=== PATIENT | female | born 1995 | race Caucasian/White ===

== ENCOUNTER 2017-10-02 15:56 | Emergency (ER) | END 2017-10-02 19:01 | disposition home or self-care (01) ==

== ENCOUNTER 2019-01-08 11:42 | Outpatient (CLI) | payer BC ==
[~2019-01-08] VITALS: Ht 157.5 cm; Wt 53.1 kg
[~2019-01-08 11:42] MED LIST: AMOX500C2 PO; HYDR-4011 PO; NAPR-688 PO; NITR-58 PO
[2019-01-08 11:53] VITALS: Ht 157.5 cm; Wt 53.1 kg
--- NOTE | 2019-01-08 15:16 | PN ---
Triage Information Date/Time January 08, 2019 Reason for visit: Diarrhea Weeks of Gestation 25w /Para 1/0 Diabetes: none Hypertention: none Additional information Pt had a few bouts of diarrhea 2 days ago and once yesterday and none today. She is eating and no nausea or vomiting. No fever or chills. Pt came in as she was feeling weak although has been keeping a light diet to help her belly. No RAMIREZ's. PMHx: none. PSHx: none. NKDA. Objective T=98.0 BP 130/76 Heart Rate: 130's Heart Rate Comments Accels to 150 BPM. No decels. Contractions: None Results/Medications Imaging Results BPP 03/23 with a normal SYLVIE. Disposition: Discharge Assessment/Plan A: IUP at 25 weeks. Resolving GI distress/possible viral syndrome. P: D/C home with instructions to rest a lot, stay hydrated. F/u with her doctor as scheduled. BOGDAN ARNOLD MD January 08, 2019 15:16
--- NOTE | 2019-01-08 15:18 | TRIAGE ---
OB Triage Datetime Report Generated by CPN: 01/08/2019 15:17 Datetime: 01/08/2019 15:06 Stage of : OB Triage Maternal Assessment Level of Consciousness: Fully Conscious DTR's/Clonus: DTRs 1+ Headache: Denies Breath Sounds, Left: Clear and Equal Breath Sounds, Right: Clear and Equal Nausea/Vomiting: Denies RUQ Epigastric Pain: Denies Labor Evaluation Frequency: NONE Monitor Mode: External Resting Tone [place]: Relaxed Heart Rate FHR Baseline Rate: 140 Monitor Mode: External US Variability: Moderate 6-25 bpm Accelerations: 10X10 Decelerations: Variable Category: Category I Pain Assessment Pain Scale: 0 Pain Presence: None/Denies Pain Type: N/A Pain Goal: 3 Vaginal Exam Membrane Status: Intact Datetime: 01/08/2019 14:55 Stage of : OB Triage Maternal Assessment Level of Consciousness: Fully Conscious DTR's/Clonus: DTRs 1+ Headache: Denies Breath Sounds, Left: Clear and Equal Breath Sounds, Right: Clear and Equal Nausea/Vomiting: Denies RUQ Epigastric Pain: Denies Labor Evaluation Frequency: NONE Monitor Mode: External Resting Tone [place]: Relaxed Heart Rate FHR Baseline Rate: 140 Monitor Mode: External US Variability: Moderate 6-25 bpm Accelerations: 10X10 Decelerations: Variable Category: Category I Pain Assessment Pain Scale: 0 Pain Presence: None/Denies Pain Type: N/A Pain Goal: 3 Vaginal Exam Membrane Status: Intact Datetime: 01/08/2019 14:00 Stage of : OB Triage Maternal Assessment Level of Consciousness: Fully Conscious DTR's/Clonus: DTRs 1+ Headache: Denies Breath Sounds, Left: Clear and Equal Breath Sounds, Right: Clear and Equal Nausea/Vomiting: Denies RUQ Epigastric Pain: Denies Labor Evaluation Frequency: NONE Monitor Mode: External Resting Tone [place]: Relaxed Heart Rate FHR Baseline Rate: 140 Monitor Mode: External US Variability: Moderate 6-25 bpm Accelerations: 10X10 Decelerations: Variable Category: Category I Comments: REACTIVE ACCORDING TO AGE Pain Assessment Pain Scale: 0 Pain Presence: None/Denies Pain Type: N/A Pain Goal: 3 Vaginal Exam Membrane Status: Intact Datetime: 01/08/2019 13:00 Stage of : OB Triage Maternal Assessment Level of Consciousness: Fully Conscious DTR's/Clonus: DTRs 1+ Headache: Denies Breath Sounds, Left: Clear and Equal Breath Sounds, Right: Clear and Equal Nausea/Vomiting: Denies RUQ Epigastric Pain: Denies Labor Evaluation Frequency: NONE Monitor Mode: External Resting Tone [place]: Relaxed Heart Rate FHR Baseline Rate: 140 Monitor Mode: External US Variability: Moderate 6-25 bpm Accelerations: 10X10 Decelerations: Variable Category: Category I Comments: REACTIVE ACCORDING TO AGE Pain Assessment Pain Scale: 0 Pain Presence: None/Denies Pain Type: N/A Pain Goal: 3 Vaginal Exam Membrane Status: Intact Datetime: 01/08/2019 12:00 Maternal Assessment Level of Consciousness: Fully Conscious DTR's/Clonus: DTRs 1+ Headache: Denies Blurred Vision: No Respiratory Effort: Unlabored Breath Sounds, Left: Clear and Equal Breath Sounds, Right: Clear and Equal Nausea/Vomiting: Denies RUQ Epigastric Pain: Denies Facial Edema: None Labor Evaluation Frequency: NONE Monitor Mode: External Resting Tone [place]: Relaxed Heart Rate FHR Baseline Rate: 140 Monitor Mode: External US Variability: Moderate 6-25 bpm Accelerations: 10X10 Decelerations: None Category: Category I Pain Assessment Pain Scale: 0 Pain Presence: None/Denies Pain Type: N/A Pain Goal: 3 Vaginal Exam Membrane Status: Intact Datetime: 01/08/2019 11:50 EGA: 25.0 Datetime: 01/08/2019 11:45 Assessment Type: Triage Maternal Assessment Level of Consciousness: Fully Conscious DTR's/Clonus: DTRs 2+; No Clonus Headache: Denies Blurred Vision: No Respiratory Effort: Unlabored; Regular Rhythm; Equal Expansion Breath Sounds, Left: Clear and Equal Breath Sounds, Right: Clear and Equal Nausea/Vomiting: Denies RUQ Epigastric Pain: Denies Lower Extremities Edema: None Degree: None Upper Extremities Edema: None Degree: None Facial Edema: None Fall Risk Assessment History of Falling: (0) No Secondary Diagnosis: (0) No Ambulatory Aid: (0) Bedrest/Nurse Assist IV Therapy: (0) No Gait: (0) Normal/Bedrest/Immobile Mental Status: (0) Oriented to Own Ability Fall Score: 0 Fall Risk Score Definition: No Risk: No action required Datetime: 01/08/2019 11:34 Time of Arrival: 01/08/2019 11:34 Arrived By: Ambulatory Arrived From: Home Chief Complaint: PT CAME IN STATING THAT SHE HAS HAD DIARRHEA FOR 3 DAYS AND NOW IS BETTER AND SHE FEEL WEAK. SHE WANTS TO MAKE SURE THAT HER BABY IS OK Movement: Present Contractions: Denies/Absent Rupture of Membranes: Denies Vaginal Discharge: Denies Recent Sexual Intercouse: Denies Additional Patient Complaints: NONE Time Provider Notified: 01/08/2019 12:00 Provider Notified: FANNY/CLAYTON Initial Plan: MONITOR
== END 2019-01-08 15:15 | disposition home or self-care (01) ==
LOC: OBT 11:42 → L-D 11:43 → OBT 15:15
PROVIDERS: ATTEND Obstetrics & Gynecology
DX: O26.892 Other specified pregnancy related conditions, second trimester (principal); R19.7 Diarrhea, unspecified; Z3A.25 25 weeks gestation of pregnancy
CPT/HCPCS: G0463

== ENCOUNTER 2019-03-20 01:50 | Outpatient (CLI) | payer BC ==
[~2019-03-20] VITALS: Ht 157.5 cm; Wt 61.8 kg
[~2019-03-20 01:50] MED LIST changes: -AMOX500C2 PO; -HYDR-4011 PO; -NAPR-688 PO; -NITR-58 PO; +PREN1TAB91 PO
[2019-03-20 02:28] VITALS: Ht 157.5 cm; Wt 61.8 kg
[2019-03-20] MEDS ORDERED: ACETAMINOPHEN 500 MG TAB PO STA (04:13)
--- NOTE | 2019-03-20 06:15 | TRIAGE ---
OB Triage Datetime Report Generated by CPN: 03/20/2019 06:15 Datetime: 03/20/2019 03:26 Time of Arrival: 03/20/2019 01:47 EGA: 35.1 Arrived By: Wheelchair Arrived From: Home Chief Complaint: FELL ON WET FLOOR ON HER BOTTOM AROUND 1500, CRAMPS AND PRESSURE SINCE 1800 Movement: Present Rupture of Membranes: Denies Vaginal Bleeding: None Vaginal Discharge: Denies Patient Complaints: None Time Provider Notified: 03/20/2019 03:15 Provider Notified: ROBERTO Initial Plan: EFM, KB, TYPE AND SCREEN, UA, U/S FOR BPP AND PLACENTA Datetime: 03/20/2019 03:10 Stage of : OB Triage Labor Evaluation Monitor Mode: Internal Quality: Mild Pattern: Normal: <= 5 Contractions in 10 Minutes Resting Tone [place]: Relaxed Heart Rate FHR Baseline Rate: 130 Monitor Mode: External US FHR Baseline Changes: No Baseline Change Variability: Moderate 6-25 bpm Accelerations: 15X15 Decelerations: None Category: Category I Datetime: 03/20/2019 02:20 Assessment Type: Triage Maternal Assessment Level of Consciousness: Keenly Alert, Responsive DTR's/Clonus: DTRs 2+; No Clonus Headache: Denies Blurred Vision: No Respiratory Effort: Unlabored; Regular Rhythm; Equal Expansion Breath Sounds, Left: Clear and Equal Breath Sounds, Right: Clear and Equal Nausea/Vomiting: Denies RUQ Epigastric Pain: Denies Lower Extremities Edema: Bilateral Lower Extremities Degree: 2+ (Annotations: NO PITTING) Upper Extremities Edema: None Facial Edema: None Fall Risk Assessment History of Falling: (0) No Secondary Diagnosis: (0) No Ambulatory Aid: (0) Bedrest/Nurse Assist IV Therapy: (0) No Gait: (0) Normal/Bedrest/Immobile Mental Status: (0) Oriented to Own Ability Fall Score: 0 Fall Risk Score Definition: No Risk: No action required Datetime: 03/20/2019 02:16 Stage of : OB Triage Labor Evaluation Monitor Mode: External Quality: Mild Resting Tone [place]: Relaxed Heart Rate FHR Baseline Rate: 130 Monitor Mode: External US Pain Assessment Pain Presence: Constant Pain Type: Cramping; Pressure Pain Location: Abdomen Datetime: 01/08/2019 11:50 EGA: 25.0 Datetime: 01/08/2019 11:45 Fall Score: 0 Fall Risk Score Definition: No Risk: No action required
--- NOTE | 2019-03-20 09:48 | PN ---
Triage Information Date/Time Reason for visit: s/p fall but did not hit abdomen Weeks of Gestation 23-year-old 1 para 0 at 35 weeks and 1 day of gestation with estimated date of delivery May 04, 2019 Patient presents after a fall at home but did not hit her abdomen Patient reports positive movement, denies vaginal bleeding and leaking fluid, denies uterine contractions /Para 1 para 0 Diabetes: none Hypertention: none Objective Heart Rate: 140's Heart Rate Comments heart rate tracing category 1 Contractions: None Results/Medications Results 24 hrs Blood type A positive Kleihauer-Betke test negative Laboratory Tests Test 03/20/19 03:00 03/20/19 04:11 Urine Color STRAW Urine Clarity CLEAR Urine pH 7.0 Urine Specific [place] 1.006 Urine Ketones NEGATIVE Urine Nitrite NEGATIVE Urine Bilirubin NEGATIVE Urine Urobilinogen NEGATIVE Urine Leukocyte Esterase NEGATIVE Urine Microscopic RBC 0 Urine Microscopic WBC 1 Urine Bacteria FEW A Urine Hemoglobin NEGATIVE Urine Glucose NEGATIVE Urine Total Protein NEGATIVE Kleihauer-Betke Stain 0.0000 Imaging Results PROCEDURE: US OB > 14 weeks. CLINICAL INDICATION: Bleeding TECHNIQUE: Multiple sonographic images of the pelvis were obtained. The images were reviewed on a PACS workstation. COMPARISON: None FINDINGS: There is a single live intrauterine gestation. Cardiac activity is present with 131 beats per minute. Cephalic presentation. Measurements were made in order to determine age. The results are as follows: BPD = 8.27 cm 33 weeks 2 days HC = 30.50 cm 34 weeks 0 days AC = 31.60 cm 35 weeks 4 days FL = 6.79 cm 34 weeks 6 days Estimated gestational age of approximately 34 weeks 3 days. The estimated date of delivery is 04/28/2019. Estimated weight = 2554 grams ( 5 lb 10 oz), LMP percentile 45%. No anatomic abnormalities demonstrated. The placenta is anterior. There is no evidence for an abruption or placenta previa. Amniotic fluid volume appears adequate, MVP 3.7 cm IMPRESSION: Single live intrauterine gestation of approximately 34 weeks 3 days. Estimated date of delivery 04/28/2019. RPTAT: [facility] wood-Jose Miguel Almendarez, Physician Date Time Electronically viewed and signed by Physician Miko on 03/20/2019 04:27 xB/ CC: ZACH MEJIA MD [id number] Disposition: Discharge Assessment/Plan kick count instructions were given Labor precautions were given Patient instructed to return in 48 hours for repeat BPP and NST Patient instructed to follow-up with [facility] in 1 to 2 days ZACH MEJIA MD Mar 20, 2019 09:48
== END 2019-03-20 05:52 | disposition home or self-care (01) ==
LOC: L-D 01:50 → OBT 01:50
PROVIDERS: ATTEND Obstetrics & Gynecology
DX: O46.8X3 Other antepartum hemorrhage, third trimester (principal); Z3A.34 34 weeks gestation of pregnancy
CPT/HCPCS: 76805; 81003; 85460; 86850; 86900; 86901; Z7500; Z7610; G0463

== ENCOUNTER 2019-04-20 20:46 | Inpatient (IN) | payer BC ==
[~2019-04-20] VITALS: Ht 157.5 cm; Wt 63.5 kg
[2019-04-20 22:27] VITALS: BP 144/92; PULSE 71; RESP 15
[2019-04-20] MEDS ORDERED: LACTATED RINGER'S 1,000 ML IV PRN (22:53)
[2019-04-20] MEDS ORDERED: METHYLERGONOVINE 0.2 MG INJ IM PRN (23:00)
[2019-04-20] MEDS ORDERED: OXYTOCIN 30 UNITS/LR 500 ML IV SCH ×2 (23:00)
[2019-04-20] MEDS ORDERED: MISOPROSTOL 200 MCG TAB PR PRN (23:00)
[2019-04-20] MEDS ORDERED: CARBOPROST 250 MCG INJ IM PRN (23:00)
[2019-04-20] MEDS ORDERED: OXYTOCIN 30 UNITS/LR 500 ML IV PRN (23:00)
[2019-04-20] MEDS ORDERED: IBUPROFEN 600 MG TAB PO PRN (23:00)
[2019-04-20] MEDS ORDERED: LIDOCAINE 1% (MPF) 30 ML INJ INJ PRN (23:00)
[2019-04-20] MEDS ORDERED: BUTORPHANOL 2 MG INJ IV PRN ×2 (23:00)
[2019-04-20] MEDS ORDERED: AMPICILLIN 2 GM/NS (PMX) 100 ML IV ONE (23:30)
[2019-04-20] MEDS ORDERED: AL HYDROX/MG HYDROX/SIMETH 30 ML CUP PO ONE (23:30)
[2019-04-21] MEDS: LACTATED RINGER'S 1,000 ML IV SCH ×2 (00:09→22:53)
[2019-04-21] MEDS: MISOPROSTOL 50 MCG CAPSULE PO SCH ×2 (01:07→06:11)
[2019-04-21] MEDS ORDERED: AMPICILLIN 1 GM/NS (PMX) 50 ML IV SCH (03:30)
[2019-04-21] MEDS ORDERED: NALOXONE (0.4 MG/ML) INJ IV PRN ×2 (08:30→09:00)
[2019-04-21] MEDS ORDERED: FENTAnyl 2MCG/ML-ROPIV 0.2% 100 ML ONE (08:33)
[2019-04-21] MEDS ORDERED: MAGNESIUM SULFATE 4 GM/100 ML 100 ML ONE (09:26)
[2019-04-21] MEDS ORDERED: MAGNESIUM SULFATE 4 GM/100 ML 100 ML IVPB ONE (09:30)
[2019-04-21] MEDS ORDERED: MAGNESIUM SULFATE 20 GM/500 ML 500 ML IV SCH (09:30)
[2019-04-21] MEDS ORDERED: OXYTOCIN 30 UNITS/LR 500 ML IV SCH ×2 (10:00→14:55)
[2019-04-21] MEDS: MAGNESIUM SULFATE 40GM/1000ML 1,000 ML IV SCH (10:09)
[2019-04-21] MEDS ORDERED: CARBOPROST 250 MCG INJ IM PRN (15:00)
[2019-04-21] MEDS ORDERED: METHYLERGONOVINE 0.2 MG INJ IM PRN (15:00)
[2019-04-21] MEDS ORDERED: LANOLIN HPA 1 PKT TOP PRN (15:00)
[2019-04-21] MEDS ORDERED: MISOPROSTOL 200 MCG TAB PR PRN (15:00)
[2019-04-21] MEDS ORDERED: ZOLPIDEM 5 MG TAB PO PRN (15:00)
[2019-04-21] MEDS ORDERED: HYDROCODONE/APAP (5/325) TAB PO PRN ×2 (15:00)
[2019-04-21] MEDS ORDERED: NACL 0.9% 3 ML SYG IV SCH (15:00)
[2019-04-21] MEDS ORDERED: WITCH HAZEL/GLYCERIN PAD PR PRN (15:00)
[2019-04-21] MEDS ORDERED: ONDANSETRON 4 MG INJ IV PRN (15:00)
[2019-04-21] MEDS ORDERED: OXYTOCIN 30 UNITS/LR 500 ML IV PRN (15:00)
[2019-04-21] MEDS ORDERED: ACETAMINOPHEN 325 MG TAB PO PRN (15:00)
[2019-04-21] MEDS: FENTAnyl 2MCG/ML-ROPIV 0.2% 100 ML BAG EPI SCH ×2 (15:46→15:47)
[2019-04-21 21:00] VITALS: BP 142/87; PULSE 95; RESP 19
[2019-04-21 22:00] VITALS: BP 139/87; PULSE 95; RESP 20
[2019-04-21 23:00] VITALS: BP 138/83; PULSE 97; RESP 19
[2019-04-22] VITALS (16 sets, daily range): BP systolic 124–146; BP diastolic 66–96; PULSE 74–99; RESP 15–21
[2019-04-22] MEDS: IBUPROFEN 600 MG TAB PO PRN (05:29)
[2019-04-22] MEDS: MAGNESIUM SULFATE 40GM/1000ML 1,000 ML IV SCH (06:22)
[2019-04-22] MEDS: LACTATED RINGER'S 1,000 ML IV SCH ×3 (06:53→22:53)
[2019-04-22] MEDS ORDERED: NACL 0.9% 3 ML SYG IV SCH (09:30)
[2019-04-22] MEDS ORDERED: CA GLUCONATE (GM) 10% 10ML INJ IV PRN (09:30)
[2019-04-22] MEDS ORDERED: MAGNESIUM SULFATE 4 GM/100 ML 100 ML IV SCH (09:30)
[2019-04-22] MEDS ORDERED: MAGNESIUM SULFATE 40GM/1000ML 1,000 ML IV SCH (11:00)
[2019-04-23 04:00] VITALS: BP 139/83; PULSE 91; RESP 18
[2019-04-23] MEDS: LACTATED RINGER'S 1,000 ML IV SCH (06:53)
[2019-04-23 08:00] VITALS: BP 144/95; PULSE 85; RESP 18
[2019-04-23 12:18] VITALS: BP 136/86; PULSE 94; RESP 18
[2019-04-23] MEDS: IBUPROFEN 600 MG TAB PO PRN (17:33)
== END 2019-04-23 18:50 | disposition home or self-care (01) | DRG 807 ==
LOC: L-D 20:46 → OBT 20:46 → L-D 21:27 → OBT 22:50 → L-D 22:50 → PP1 04-21 20:07
PROVIDERS: ADMIT Obstetrics & Gynecology; ATTEND Obstetrics & Gynecology
PROC: 10E0XZZ Delivery of Products of Conception, External Approach (ICD-10-PCS; principal; 2019-04-21)
DX: O14.13 Severe pre-eclampsia, third trimester (principal); Z37.0 Single live birth; Z3A.39 39 weeks gestation of pregnancy
CPT/HCPCS: 62322; 76815; 80053; 80069; 80076; 81001; 83615; 83735; 84112; 84560; 85025; 85384; 85610; 85730; 86592; 86850; 86900; 86901; 87340; G0463; J0290; J0595; J2590; J3010; J7120